=== PATIENT | female | born 1975 | race American Indian/Alaskan Native ===

== ENCOUNTER 2017-01-29 19:59 | Emergency (ER) | payer BC ==
[2017-01-29 20:30] LABS: Basophils % (Auto) 0.5 % (0.0-1.8); Eosinophils % (Auto) 1.8 % (0.0-4.3); Hematocrit 38.1 % (30.3-42.9); Hemoglobin 12.6 gm/dl (10.1-14.3); Mean Corpuscular HGB Conc 33 % (30-34); Mean Corpuscular Hemoglobin 31 pg (28-32); Mean Corpuscular Volume 93 fl (79-97); Platelet Count 231 K/mm3 (140-440); Red Blood Count 4.08 M/mm3 (3.65-5.03); Red Cell Distribution Width 13.7 % (13.2-15.2); White Blood Count 6.9 K/mm3 (4.5-11.0)
[2017-01-29 20:53] LABS: Alanine Aminotransferase 14 units/L (7-56); Albumin 3.8 g/dL (3.9-5); Albumin/Globulin Ratio 1.1 %; Alkaline Phosphatase 50 units/L (35-129); Anion Gap 18 mmol/L; BUN/Creatinine Ratio 15.71; Blood Urea Nitrogen 11 mg/dL (7-17); Calcium 8.8 mg/dL (8.4-10.2); Carbon Dioxide 22 mmol/L (22-30); Chloride 104.8 mmol/L (98-107); Glucose 85 mg/dL (65-100); Lipase 16 units/L (13-60); Potassium 4.1 mmol/L (3.6-5.0); Sodium 141 mmol/L (137-145); Total Protein 7.3 g/dL (6.3-8.2)
[2017-01-29 22:32] LABS: Bilirubin,Urine NEG (Negative); Blood,Urine NEG (Negative); Ketones,Urine NEG (Negative); Leukocyte Esterase,Urine NEG (Negative); Nitrite,Urine NEG (Negative); Protein,Urine <15 mg/dL mg/dL (Negative); RBC,Urine < 1.0 /HPF (0.0-6.0); Urobilinogen,Urine < 2.0 mg/dL (<2.0); WBC,Urine < 1.0 /HPF (0.0-6.0)
--- NOTE | 2017-01-30 03:22 | Emergency Department Report ---
ED Abdominal Pain HPI - General Chief Complaint: Abdominal Pain Stated Complaint: IRREGULAR CYCLE/ABD PAIN/HEADACHE Time Seen by Provider: 01/30/17 03:13 Source: patient Mode of arrival: Ambulatory Limitations: No Limitations - History of Present Illness Initial Comments: 41 years old female coming today is left lower quadrant abdominal pain this been going on for 3 days. Patient stated that she has had her period twice this month and is very unusual for her. Patient denied any nausea or vomiting no diarrhea no urinary symptoms. MD Complaint: abdominal pain -: days(s) Location: LLQ, suprapubic Severity scale (0 -10): 3 Quality: cramping, fullness - Related Data Previous Rx's Medication Instructions Recorded Last Taken Type Ondansetron [Zofran Odt] 4 mg PO Q8HR PRN #14 tab.rapdis 01/30/17 Unknown Rx traMADol [Ultram 50 MG tab] 50 mg PO Q4HR PRN #14 tablet 01/30/17 Unknown Rx Allergies Allergy/AdvReac Type Severity Reaction Status Date / Time No Known Allergies Allergy Unverified 01/29/17 20:15 ED Review of Systems ROS: Stated complaint: IRREGULAR CYCLE/ABD PAIN/HEADACHE Other details as noted in HPI Comment: All other systems reviewed and negative Constitutional: denies: chills, fever Respiratory: denies: cough, shortness of breath, SOB with exertion Cardiovascular: denies: chest pain, palpitations Endocrine: denies: excessive sweating Gastrointestinal: abdominal pain. denies: nausea, vomiting, constipation, hematemesis Genitourinary: abnormal menses. denies: dysuria, frequency, hematuria Neurological: denies: headache ED Past Medical Hx - Past Medical History Previous Medical History?: No - Surgical History Past Surgical History?: No - Social History Smoking Status: Never Smoker Substance Use Type: None - Medications Home Medications: Home Medications Medication Instructions Recorded Confirmed Last Taken Type Ondansetron [Zofran Odt] 4 mg PO Q8HR PRN #14 tab.rapdis 01/30/17 Unknown Rx traMADol [Ultram 50 MG tab] 50 mg PO Q4HR PRN #14 tablet 01/30/17 Unknown Rx ED Physical Exam - General Limitations: No Limitations General appearance: alert, in no apparent distress - Head Head exam: Present: atraumatic - Eye Eye exam: Present: normal appearance - ENT ENT exam: Present: normal exam, normal orophraynx - Neck Neck exam: Present: normal inspection, full ROM. Absent: tenderness, meningismus - Respiratory Respiratory exam: Present: normal lung sounds bilaterally. Absent: wheezes, rales - Cardiovascular Cardiovascular Exam: Present: regular rate, normal rhythm, normal heart sounds - GI/Abdominal GI/Abdominal exam: Present: soft, tenderness (left lower quadrant). Absent: mass, pulsatile mass, hernia - Extremities Exam Extremities exam: Present: normal inspection - Back Exam Back exam: Present: normal inspection, full ROM. Absent: tenderness, CVA tenderness (R), CVA tenderness (L) - Neurological Exam Neurological exam: Present: alert, oriented X3, CN II-XII intact ED Course Vital Signs 01/29/17 01/30/17 20:10 02:11 Temperature 98.2 F Pulse Rate 54 L 61 Respiratory 18 18 Rate Blood Pressure 133/85 135/67 [Right] O2 Sat by Pulse 100 100 Oximetry - Reevaluation(s) Reevaluation #1: 01/30/17 05:37 Patient stated that she is feeling better. I informed the patient about her ultrasound finding which showed fibroid and I advised the patient to follow-up with her gynecology for further management. ED Medical Decision Making - Lab Data Result diagrams: 01/29/17 20:22 01/29/17 20:22 Critical care attestation.: If time is entered above; I have spent that time in minutes in the direct care of this critically ill patient, excluding procedure time. ED Disposition Clinical Impression: Abdominal pain, Fibroid, uterine Disposition: DC-01 TO HOME OR SELFCARE Is pt being admited?: No Condition: Stable Instructions: Abdominal Pain (ED), Uterine Fibroids (ED) Referrals: PRIMARY CARE,MD [Primary Care Provider] - 3-5 Days
--- NOTE | 2017-01-30 05:27 | Ultrasound Report ---
FINAL REPORT PROCEDURE: US PELVIC COMPLETE TECHNIQUE: Real-time transabdominal sonography in multiple planes of pelvis was performed with image documentation. This examination was performed without Doppler. Vascular abnormalities, including ovarian torsion, will not be detectable without Doppler evaluation. CPT 06326 HISTORY: abdominal pain, COMPARISON: No prior studies are available for comparison. FINDINGS: UTERUS Size: 9.1 x 5.5 x 6.9 cm. Endometrial thickness: 15 mm. Orientation: anteverted. Cervix: Normal. There are tiny calcifications and nabothian cysts. Fibroids/masses: There is a mass in the right side of the uterine body measuring 3 x 2.3 x 1.7 centimeters suggesting a fibroid.. RIGHT Ovary: 3 x 1.5 x 1.8 cm. Appearance: Normal. LEFT Ovary: 2.7 x 1.7 x 1.6 cm. Appearance: Normal. Pelvic fluid: None. Other: None. IMPRESSION: Right uterine mass suggesting fibroid. There is no endometrial fluid. Ovaries are unremarkable.
--- NOTE | 2017-01-30 05:28 | Ultrasound Report ---
FINAL REPORT PROCEDURE: US PELVIC TRANSVAGINAL TECHNIQUE: Real-time transvaginal sonography in multiple planes of pelvis was performed with image documentation. This examination was performed without Doppler. Vascular abnormalities, including ovarian torsion, will not be detectable without Doppler evaluation. HISTORY: abdominal pain, COMPARISON: No prior studies are available for comparison. FINDINGS: UTERUS Size: 9.1 x 5.5 x 6.9 cm. Endometrial thickness: 15 mm. Orientation: anteverted. Cervix: Normal. There are tiny calcifications and nabothian cysts. Fibroids/masses: There is a mass in the right side of the uterine body measuring 3 x 2.3 x 1.7 centimeters suggesting a fibroid.. RIGHT Ovary: 3 x 1.5 x 1.8 cm. Appearance: Normal. LEFT Ovary: 2.7 x 1.7 x 1.6 cm. Appearance: Normal. Pelvic fluid: None. Other: None. IMPRESSION: Right uterine mass suggesting fibroid. There is no endometrial fluid. Ovaries are unremarkable.
[2017-01-30 06:33] VITALS: BP 128/79
== END 2017-01-30 06:33 | disposition home or self-care (01) ==
LOC: ED 19:59
DX: R10.32 Left lower quadrant pain (principal); D25.9 Leiomyoma of uterus, unspecified
CPT/HCPCS: 36415; 76830; 76856; 80053; 81001; 83690; 84703; 85025